=== PATIENT | male | born 2000 | race Two or more races ===

== ENCOUNTER 2025-07-01 03:56 | Emergency (ER) | payer BC, OTHER, SELFPAY ==
[2025-07-01 03:58] VITALS: BP 142/85; PULSE 92; RESP 18; TEMP 36.8; O2SAT 98; BMI 26.6
--- NOTE | 2025-07-01 04:28 | PD.EDBACK ---
ED Back Injury Pain RME/HPI General Chief Complaint: Back Pain/Injury Stated Complaint: LOW BACK PAIN Time Seen by Provider: 07/01/25 04:23 Arrival date/time: 07/01/25 03:56 24M with history of asthma and marijuana use presents to ED with several days of gradually worsening low back pain. Patient denies fall/trauma, hematuria/dyusuria, and N/V. Patient lifts a lot of heavy things at work. Limitations: no limitations Related Data Home Medications ?Medication ?Instructions ?Recorded ?Confirmed No Known Home Medications 03/30/20 03/30/20 Allergies Allergy/AdvReac Type Severity Reaction Status Date / Time No Known Allergies Allergy Verified 07/01/25 04:01 Review of Systems Review of Systems Systems Reviewed: All systems reviewed, normal except as documented Musculoskeletal Musculoskeletal: Reports as per HPI and Reports back pain Past Medical History Past Medical History CARDIAC: Negative Cardiac Disorders or Congestive Heart Failure RESPIRATORY: Positive Asthma; Negative Chronic Obstructive Pulmonary Disease (COPD) GENITOURINARY: Negative Renal Disease ENDOCRINE: Negative Diabetes Mellitus Type 1 or Diabetes Mellitus Type 2 HEMATOLOGIC: Negative Sickle Cell Disease Social History SMOKING STATUS: Current every day smoker ED Exam General Limitations: Present no limitations General appearance: Present alert and in no apparent distress Head Head exam: Present atraumatic Neck Neck exam: Present normal inspection, full ROM and trachea midline Chest Chest inspection: Present normal inspection and symmetric chest wall rise Extremities Exam Extremities exam: Present normal inspection and full ROM Back Exam Back exam: Present normal inspection and full ROM Neurological Exam Neurological exam: Present alert, oriented X3 and CN II-XII intact Psychiatric Psychiatric exam: Present normal affect and normal mood Skin Skin exam: Present warm, dry, intact and normal color Course Quality Measures none Orders Category Date Time Status CYCLObenzaPRINE [Flexeril] Med 07/01/25 04:24 Discontinued 5 mg PO X1 ONE Ketorolac Inj [Toradol Inj] Med 07/01/25 04:24 Discontinued 60 mg IM X1 ONE Vital Signs Vital signs: Vital Signs Temperature 98.3 F 07/01/25 03:58 Pulse Rate 92 07/01/25 03:58 Respiratory Rate 18 07/01/25 03:58 Blood Pressure 142/85 H 07/01/25 03:58 Pulse Oximetry (%) 98 07/01/25 03:58 Oxygen Delivery Method Room Air 07/01/25 03:58 O2 at 98% on RA and WNLs Back Pain / Injury MDM Narrative MDM Narrative:: 24M with history of asthma and marijuana use presents to ED with several days of gradually worsening low back pain. Patient denies fall/trauma, hematuria/dyusuria, and N/V. Patient lifts a lot of heavy things at work. Physical exam reveals no midline back tenderness. Pain is worse with ROM. Gait normal. Patient is afebrile, calm, and alert. Meds and career development counselor given. Patient data External records reviewed:: [facility] previous records Clinical information provided by:: patient Social determinants that could affect healthcare access:: substance use Patient has the following chronic illnesses:: asthma and marijuana use How is presenting disease/condition affected by chronic disease/condition?: uneffected by Evaluation data The following diagnostics were reviewed and interpreted by me:: other (specify) (none) Lab and/or radiology exams considered but not ordered:: not ordered Interpretation Summary: n/a Medications / Prescriptions Medications or Prescriptions considered but not ordered:: ordered Medication administrations:: Medication Administration History Discontinued Medications Cyclobenzaprine HCl (Cyclobenzaprine 5 Mg Tablet) 5 mg PO X1 ONE Stop: 07/01/25 04:25 Ketorolac Tromethamine (Ketorolac Inj 60 Mg/2 Ml Vial) 60 mg IM X1 ONE Stop: 07/01/25 04:25 above Consultations Consultation(s) initiated? (list below): No Diagnosis Differential diagnosis back pain/injury: lumbar radiculopathy, sciatica, strain of lumbar region, renal colic, pyelonephritis, thoracic back pain, AAA and discitis Most likely diagnosis given after review of the tests above:: strain of lumbar region Admission Indicated Admission indicated?: not indicated Admission Request Was there a request for admission?: No Disposition Plan Disposition Plan: Discharge Discharge Attestation Discharge Attestation: The patient and all family members were given an opportunity to ask questions and understood the discharge instructions. Discharge instructions specifically effects, indications for sooner follow up or return to the emergency department, and the expected course of current diagnosis. Patient condition: Stable Discharge Plan Plan Patient Disposition: HOME (Self Care) Discharge Disposition comment: Stable Prescriptions/Referrals Prescriptions/Med Rec: No Action No Known Home Medications Problem List Clinical Impression: Strain of lumbar region Patient/Caregiver Discharge Instructions Education Materials: ED Back Sprain/Strain Additional Instructions: Please follow-up with PCP within 24-48 hours and return immediately if symptoms worsen. If problem persists, recommend outpatient PT and/or MRI follow-up. In the meantime, rest, use ice/heat, and/or compression. NSAIDs like ibuprofen tend to work better for this type of pain. Print Language: Tongan Stand Alone Forms: Work/School Release, Patient Portal Info Letter PA/GORDO Supervising Physician KYLEE/GORDO Supervising Physician: Dr. Chappell
[2025-07-01] MEDS: KETOROLAC INJ 60 MG/2 ML VIAL IM (04:30)
== END 2025-07-01 04:40 | disposition home or self-care (01) ==
LOC: SERX 04:38
PROVIDERS: Emergency Provider Emergency Medicine; PCP Family Medicine
DX: S39.012A Strain of muscle, fascia and tendon of lower back, initial encounter (principal); X58.XXXA Exposure to other specified factors, initial encounter
CPT/HCPCS: 96372; 99283; J1885; A9270